=== PATIENT | male | born 1955 | race Caucasian/White ===

== ENCOUNTER 2017-05-02 12:38 | Inpatient (IN) ==
[2017-05-02] MEDS ORDERED: ATROPINE SULFATE PFS IVP PRN (12:58)
[2017-05-02] MEDS ORDERED: NITROSTAT SL PRN (12:58)
[2017-05-02] MEDS ORDERED: MORPHINE 4 MG/ML VIAL IVP PRN (12:58)
[2017-05-02] MEDS ORDERED: TYLENOL PO PRN (12:58)
[2017-05-02] MEDS ORDERED: VISTARIL INJ IM PRN (12:58)
[2017-05-02] MEDS ORDERED: TUSSIONEX PO STA (13:08)
[2017-05-02] MEDS ORDERED: TESSALON PERLES PO STA (13:12)
[2017-05-02] MEDS: DEXTROSE 5%-1/2NS IV SOLUTION 1,000 ML IV SCH (13:39)
[2017-05-02] MEDS: ZITHROMAX PO SCH (13:40)
[2017-05-02] MEDS: SOLU-CORTEF 250 MG IVP SCH ×2 (13:40→21:14)
[2017-05-02] MEDS: ROCEPHIN 1 GM in SODIUM CHLORIDE 50 ML IV SCH (13:40)
[2017-05-02 13:41] VITALS: BMI 23.1
--- NOTE | 2017-05-02 15:12 | DI ---
EXAM: CHEST FRONTAL AND LATERAL VIEWS HISTORY: Cough for 2 weeks. COMPARISON: None FINDINGS: Normal heart size. Patchy areas of nodular density are seen bilaterally, minimal in degre e. Mild hyperinflation. No vascular congestion or pleural fluid. No pneumothorax. IMPRESSION: Patchy nodular densities bilaterally could represent small areas of pneumonia. Follow-up is recommen ded to exclude other pathology including benign or malignant nodules.
[2017-05-02] MEDS: VANCOMYCIN 500 MG in SODIUM CHLORIDE 100 ML IV SCH ×2 (15:34→21:14)
[2017-05-02] MEDS: XOPENEX 1.25 MG NEB SCH ×2 (17:05→23:57)
[2017-05-02] MEDS: DESYREL PO SCH (21:14)
[2017-05-02] MEDS: TESSALON PERLES PO SCH (21:14)
[2017-05-02] MEDS: TUSSIONEX PO SCH (21:14)
[2017-05-03] MEDS: DEXTROSE 5%-1/2NS IV SOLUTION 1,000 ML IV SCH ×3 (00:28→13:31)
[2017-05-03] MEDS: XOPENEX 1.25 MG NEB SCH ×4 (05:19→23:00)
[2017-05-03] MEDS: SOLU-CORTEF 250 MG IVP SCH ×3 (05:48→21:58)
[2017-05-03] MEDS ORDERED: ASPIRIN EC PO SCH (08:00)
[2017-05-03] MEDS ORDERED: NON-FORMULARY MEDICATION (Simvastatin [Simvastatin] 20 MG) PO SCH (09:00)
[2017-05-03] MEDS ORDERED: NON-FORMULARY MEDICATION (Losartan Potassium 50 MG) PO SCH (09:00)
[2017-05-03] MEDS: ROCEPHIN 1 GM in SODIUM CHLORIDE 50 ML IV SCH (09:46)
[2017-05-03] MEDS: ZOCOR PO SCH (09:46)
[2017-05-03] MEDS: ASPIRIN EC PO SCH (09:46)
[2017-05-03] MEDS: ZITHROMAX PO SCH (09:47)
[2017-05-03] MEDS: COZAAR PO SCH (09:47)
[2017-05-03] MEDS: TESSALON PERLES PO SCH ×3 (09:47→21:58)
[2017-05-03] MEDS: TUSSIONEX PO SCH ×2 (09:53→21:58)
--- NOTE | 2017-05-03 10:03 | PCM.PROG ---
Attending Provider: ATTENDING PROVIDER: Dr. DAMARIS VALDEZ This patient is seen with Melani Muro, Nurse Practitioner. DATE OF SERVICE: 05/03/17 SUBJECTIVE: This 61 year old WHITE/ M was hospitalized 05/02/17. Lying in bed, alert, feels slightly better than yesterday. REVIEW OF SYSTEMS: CONSTITUTIONAL: Weakness. No night sweats. No fever or chills. HEENT: Eyes: No visual changes. No eye pain. No eye discharge. ENT: No runny nose. No epistaxis. No sinus pain. No odynophagia. No congestion. RESPIRATORY: Cough and congestion. No hemoptysis. Positive for shortness of breath. CARDIOVASCULAR: No angina symptoms. No CHF symptoms. No atypical chest pain for CAD. No palpitations. No orthopnea.. GASTROINTESTINAL: No abdominal pain. No nausea or vomiting. No diarrhea or constipation. No hematemesis. No hematochezia. GENITOURINARY: No urgency. No frequency. No dysuria. No hematuria. No obstructive symptoms. No discharge. No pain. No significant abnormal bleeding. MUSCULOSKELETAL: No musculoskeletal pain; no joint swelling. NEUROLOGICAL: Awake, alert, oriented to time, place and person. No headache. No neck pain. No syncope. No seizures. No dizziness. PSYCHIATRIC: Not anxious. No depression. No suicidal thoughts. No homicidal thoughts. SKIN: No rash. No lesions. No wounds. ENDOCRINE: No unexplained weight loss. No weight gain. HEMATOLOGIC/LYMPHATIC: No anemia. No purpura. No petechiae. No prolonged or excessive bleeding. No palpable lymph nodes. PHYSICAL EXAMINATION: GENERAL: The patient is awake, alert and oriented, lying in bed in no distress. VITAL SIGNS: Temperature 98.7 F, Pulse 84, Respiratory Rate 16, BP 116/63, Pulse Ox 99% HEENT: Head normocephalic, atraumatic. Eyes: Extraocular muscles are intact. Pupils are equal, round and reactive to light and accommodation. Ears: No lesions. Nose appeared normal. Throat: No exudate or erythema. NECK: Supple. No JVD, no carotid bruit. No lymphadenopathy or thyromegaly. LUNGS: Decreased air entry, wheeze bilaterally. Percussion note normal. Chest symmetrical. HEART: S1, S2, no S3. No murmurs. No cyanosis or clubbing. No ascites. Pulses: Dorsalis pedis and posterior tibial pulses +1 to +2 both sides. ABDOMEN: Soft. Non-tender. Bowel sounds active. No CVA tenderness. No mass felt. EXTREMITIES: No edema. Full range of motion of all extremities, equal. NEUROLOGIC: No focal deficit. Cranial nerves II through XII are grossly intact. No headache, no double vision or headache. SKIN: Not dry. Intact. Turgor-normal. LYMPHATIC: No palpable lymph nodes/no lymphedema. MUSCULOSKELETAL: Normal joints with no swelling. Muscle tone is normal. LAB REVIEW: 05/03/17 03:45 05/03/17 03:45 05/03/17 03:45: Sodium 138, Potassium 4.3, Chloride 105, Carbon Dioxide 25, Anion Gap 12.3, BUN 12, Creatinine 0.97, Estimated GFR (MDRD) 79.00, BUN/ Creatinine Ratio 12.37, Glucose 189 H D, Calcium 9.0, Total Bilirubin 0.5, AST 12 L, ALT 14, Alkaline Phosphatase 50 L, Total Protein 6.8, Albumin 2.7 L, Globulin 4.1, Albumin/Globulin Ratio 0.66 05/03/17 03:45: WBC 6.87, RBC 3.37 L, Hgb 11.1 L, Hct 31.7 L, MCV 94.1 H, MCH 32.9 H, MCHC 35.0, RDW Coeff of Davon 12.2, Plt Count 320, Immature Gran % (Auto) 0.4, Neut % (Auto) 85.9, Lymph % (Auto) 7.3 L, Smith % (Auto) 6.4, Eos % (Auto) 0.0, Baso % (Auto) 0.0, Immature Gran # (Auto) 0.0, Neut # 5.9, Lymph # 0.5 L, Smith # 0.4, Eos # 0.0, Baso # 0.0 05/02/17 21:00: Total Creatine Kinase 52, Troponin I < 0.0100 05/02/17 15:50: Urine Color Yellow, Urine Clarity Clear, Urine pH 5.5, Ur Specific [place] 1.020, Urine Protein Trace, Urine Glucose (UA) Negative, Urine Ketones 3+, Urine Blood Negative, Urine Nitrite Negative, Urine Bilirubin 1+, Urine Urobilinogen 0.2, Ur Leukocyte Esterase Negative, Urine Microscopic WBC 0- 2, Ur Squamous Epith Cells Not present, Urine Mucus 2+ 05/02/17 14:00: Influenza A (Rapid) Negative by naat, Influenza B (Rapid) Negative by naat 05/02/17 13:10: Puncture Site Rrad, O2 Saturation 90.0 L, ABG pH 7.487 H, ABG pCO2 32.6 L, ABG pO2 54.0 L*, ABG HCO3 24.6, ABG Total CO2 26, ABG Base Excess 1 , Ranjit Test +, FiO2 % 21.0 05/02/17 13:08: Total Creatine Kinase 49, Troponin I 0.0150 05/02/17 13:08: Sodium 135 L, Potassium 4.1, Chloride 101, Carbon Dioxide 26, Anion Gap 12.1, BUN 17, Creatinine 1.04, Estimated GFR (MDRD) 73.00, BUN/ Creatinine Ratio 16.34, Glucose 98, Calcium 9.5, Total Bilirubin 0.9, AST 16, ALT 15, Alkaline Phosphatase 56, Total Protein 7.6, Albumin 3.1 L, Globulin 4.5 , Albumin/Globulin Ratio 0.69 05/02/17 13:08: WBC 9.79, RBC 3.99 L, Hgb 12.5 L, Hct 36.3 L, MCV 91.0, MCH 31.3 H, MCHC 34.4, RDW Coeff of Davon 12.0, Plt Count 312, Immature Gran % (Auto) 0.5, Neut % (Auto) 82.0, Lymph % (Auto) 7.6 L, Smith % (Auto) 9.2, Eos % (Auto) 0.4, Baso % (Auto) 0.3, Immature Gran # (Auto) 0.1, Neut # 8.0 H, Lymph # 0.7, Smith # 0.9, Eos # 0.0, Baso # 0.0 ASSESSMENT: 1. BILATERAL PNEUMONIA 2. DEHYDRATION PLAN: 1. Continue IV antibiotics and steroids 2. Decrease IV fluids to 75 mL/hr Plan and coordination of the patient's care discussed in the presence of Client Support Representative and nurse. CONDITION: Stable SCRIBED BY: HERO DUNLAP Ruby On Rails Software Developer scribed while in presence of service performed by Dr. Valdez/Melani Muro APRN on 05/03/17 ([id number])
[2017-05-03] MEDS: VANCOMYCIN 500 MG in SODIUM CHLORIDE 100 ML IV SCH ×2 (10:41→21:26)
[2017-05-03] MEDS ORDERED: DEXTROSE 5%-1/2NS IV SOLUTION 1,000 ML IV SCH (13:21)
[2017-05-03] MEDS: DESYREL PO SCH (21:58)
[2017-05-04] MEDS: DEXTROSE 5%-1/2NS IV SOLUTION 1,000 ML IV SCH (02:39)
[2017-05-04] MEDS: XOPENEX 1.25 MG NEB SCH ×4 (04:30→22:45)
[2017-05-04] MEDS: SOLU-CORTEF 250 MG IVP SCH ×3 (05:56→21:59)
--- NOTE | 2017-05-04 07:04 | HP ---
DATE OF SERVICE: 05/02/17 HISTORY OF PRESENT ILLNESS: This 61-year-old male presented with cough times two weeks with shortness of breath. He took Keflex and Prednisone initially and had 102 temperature. He has a poor appetite. PAST MEDICAL HISTORY: Hypertension Dyslipidemia Erectile dysfunction Insomnia PAST SURGICAL HISTORY: Tooth extraction 1973, 1975 REVIEW OF SYSTEMS: CONSTITUTIONAL: Positive for fever and fatigue. HEENT: Positive for sinus drainage. No sore throat. RESPIRATORY: Cough with yellowish sputum times two weeks. No hemoptysis. CARDIOVASCULAR: Positive for shortness of breath with exertion. No atypical chest pain for coronary artery disease. No angina, CHF symptoms, or palpitations. GASTROINTESTINAL: No melena or abdominal pain. No GERD. GENITOURINARY: No hematuria, no prostatism, no polyuria. SOCIAL RESEARCH ASSISTANT: Positive for dizziness. No blackout, no headache, no double vision. MUSCULOSKELETAL: No osteoarthritis pain, no joint swelling. ENDOCRINE: Weight loss of 12 lb in two weeks. SKIN: Not dry, no rash. PSYCHIATRIC: Not anxious, no depression, no suicidal thoughts, no homicidal thoughts. SOCIAL HISTORY: . Smokes cigars. Alcohol use - socially on weekends, sometimes none. FAMILY HISTORY: Father is with pulmonary problems. Mother - dementia. Brother( s) two older, 58-Parkinson's, 54-healthy. No sisters. MEDICATIONS: Losartan/Cozaar 50 mg p.o. daily Simvastatin 20 mg p.o. daily Trazodone 50 mg p.o. bedtime Aspirin 81 mg p.o. q.a.m. ALLERGIES: NKDA PHYSICAL EXAMINATION: V/S: Pulse 104, BP 110/62, temperature 99.5, 02 sat 89%. Weight 170.6, Height 6' 0". BMI 23.1. GENERAL APPEARANCE: Oriented times three. Pale and clammy. HEENT: Yellow drainage. NECK: No JVP, no bruits. RESPIRATORY: Lungs have decreased breath sounds with rales bilaterally. CARDIOVASCULAR: S1, S2, no S3, no murmurs. No cyanosis, clubbing. No ascites. GI/ABDOMEN: No tenderness. Bowel sounds are active. EXTREMITIES: No edema, pulses +1, equal. SOCIAL RESEARCH ASSISTANT: Deep tendon reflexes, sensory, motor and gait all normal. RECTAL/PROSTATE: 07/01 (0.5) 08/02 (0.6). Colonoscopy 08/30, repeat in 3 years. LABS: 05/02/17 ABGs, FI02 21% on room air. pH 7.487, pc02 32.6, p02 54, base excess of 1. Bicarb 24.6, TC02 26, 02 sat 90. Sodium 135, potassium 4.1, BUN 17, creatinine 1.04, glucose 98. Total protein 7.6, albumin 3.1, globulin 4.5, alkaline phosphatase 56, white count 9.79, hemoglobin 12.5, hematocrit 36.3, platelets 312. ASSESSMENT: 1. ACUTE PNEUMONITIS 2. DEHYDRATION 3. SHORTNESS OF BREATH 4. HYPERTENSION 5. DYSLIPIDEMIA 6. ERECTILE DYSFUNCTION 7. INSOMNIA 8. PLANTAR FASCITIS PLAN: 1. Admit with routine telemetry orders 2. Regular diet 3. CBC, CMP daily 4. Chest x-ray 5. Sputum culture 6. Flu A and B swab 7. D5 1/2 NS @ 125 cc/hr 8. Rocephin 1 gm IV daily 9. Zithromax 500 mg p.o. daily times three days 10. Xopenex 1.25 neb treatment q.6hr MADISON 11. Solu-Cortef 125 mg IV q.8hr one dose now 12. 02 as need 13. Tussionex one teaspoon now and b.i.d. cough 14. Continue home medications 15. ABG on room air 16. Vancomycin 500 mg IV q.12h times 2 days TIME SPENT: More than 70 minutes. MTDD
[2017-05-04] MEDS ORDERED: TUSSIONEX PO SCH (09:00)
[2017-05-04] MEDS: TESSALON PERLES PO SCH ×3 (09:15→21:59)
[2017-05-04] MEDS: COZAAR PO SCH (09:15)
[2017-05-04] MEDS: ASPIRIN EC PO SCH (09:15)
[2017-05-04] MEDS: ZOCOR PO SCH (09:15)
[2017-05-04] MEDS: ZITHROMAX PO SCH (09:16)
[2017-05-04] MEDS: MUCINEX DM ER 600-30 MG TABLET PO SCH ×2 (09:16→21:58)
[2017-05-04] MEDS: ROCEPHIN 1 GM in SODIUM CHLORIDE 50 ML IV SCH (09:20)
--- NOTE | 2017-05-04 10:07 | PCM.PROG ---
Attending Provider: ATTENDING PROVIDER: Dr. DAMARIS VALDEZ DATE OF SERVICE: 05/04/17 SUBJECTIVE: This 61 year old WHITE/ M was hospitalized 05/02/17. The patient is hospitalized with bilateral pneumonia. Condition has steadily improved, is afebrile and appetite improved REVIEW OF SYSTEMS: CONSTITUTIONAL: No night sweats. No fatigue, malaise, lethargy. No fever or chills. HEENT: Eyes: No visual changes. No eye pain. No eye discharge. ENT: No runny nose. No epistaxis. No sinus pain. No odynophagia. No congestion. RESPIRATORY: Less cough; congestion. No hemoptysis. No shortness of breath. CARDIOVASCULAR: No angina symptoms. No CHF symptoms. No atypical chest pain for CAD. No palpitations. No orthopnea.. GASTROINTESTINAL: Appetite improved. No abdominal pain. No nausea or vomiting. No diarrhea or constipation. No hematemesis. No hematochezia. GENITOURINARY: No urgency. No frequency. No dysuria. No hematuria. No obstructive symptoms. No discharge. No pain. No significant abnormal bleeding. MUSCULOSKELETAL: No musculoskeletal pain; no joint swelling. NEUROLOGICAL: Awake, alert, oriented to time, place and person. No headache. No neck pain. No syncope. No seizures. No dizziness. PSYCHIATRIC: Not anxious. No depression. No suicidal thoughts. No homicidal thoughts. SKIN: No rash. No lesions. No wounds. ENDOCRINE: No unexplained weight loss. No weight gain. HEMATOLOGIC/LYMPHATIC: No anemia. No purpura. No petechiae. No prolonged or excessive bleeding. No palpable lymph nodes. PHYSICAL EXAMINATION: GENERAL: The patient is awake, alert and oriented, lying in bed in no distress. VITAL SIGNS: Temperature 98.0 F, Pulse 91, Respiratory Rate 18, BP 130/66, Pulse Ox 94% HEENT: Head normocephalic, atraumatic. Eyes: Extraocular muscles are intact. Pupils are equal, round and reactive to light and accommodation. Ears: No lesions. Nose appeared normal. Throat: No exudate or erythema. NECK: Supple. No JVD, no carotid bruit. No lymphadenopathy or thyromegaly. LUNGS: Decreased breath sounds with mild wheeze. Percussion note normal. Chest symmetrical. HEART: S1, S2, no S3. No murmurs. No cyanosis or clubbing. No ascites. Pulses: Dorsalis pedis and posterior tibial pulses +1 to +2 both sides. ABDOMEN: Soft. Non-tender. Bowel sounds active. No CVA tenderness. No mass felt. EXTREMITIES: No edema. Full range of motion of all extremities, equal. NEUROLOGIC: No focal deficit. Cranial nerves II through XII are grossly intact. No headache, no double vision or headache. SKIN: Not dry. Intact. Turgor-normal. LYMPHATIC: No palpable lymph nodes/no lymphedema. MUSCULOSKELETAL: Normal joints with no swelling. Muscle tone is normal. LAB REVIEW: 05/04/17 04:30 05/04/17 04:30 05/04/17 04:30: Sodium 139, Potassium 3.9, Chloride 106, Carbon Dioxide 23, Anion Gap 13.9, BUN 11, Creatinine 0.89, Estimated GFR (MDRD) 87.00, BUN/ Creatinine Ratio 12.35, Glucose 159 H, Calcium 8.9, Total Bilirubin 0.4, AST 13 L, ALT 18, Alkaline Phosphatase 51 L, Total Protein 6.2 L, Albumin 2.7 L, Globulin 3.5, Albumin/Globulin Ratio 0.77 05/04/17 04:30: WBC 10.44 H, RBC 3.54 L, Hgb 10.8 L, Hct 32.5 L, MCV 91.8, MCH 30.5, MCHC 33.2, RDW Coeff of Davon 12.1, Plt Count 290 05/03/17 13:50: Puncture Site R rad, O2 Saturation 91.0 L, ABG pH 7.476 H, ABG pCO2 33.8 L, ABG pO2 57.0 L*, ABG HCO3 24.9, ABG Total CO2 26, ABG Base Excess 1 , Ranjit Test +, FiO2 % 21.0 ASSESSMENT: 1. BILATERAL PNEUMONIA SEEMS TO BE IMPROVING SLOWLY; NEGATIVE PE. PLAN: 1. Continue antibiotics and steroids 2. Xanax 0.25 at 9 or 10 p.m. to help with sleep; do not wake patient for vital signs. 3. D/C EKG 4. Chest x-ray, PA and Lateral 5. D/C telemetry 6. Change Tussionex to t.i.d. 7. ABG tomorrow morning on room air at 8 a.m. Plan and coordination of the patient's care discussed in the presence of Electrical Design Technician and nurse. CONDITION: Stable SCRIBED BY: HERO DUNLAP Ager Operator scribed while in presence of service performed by Dr. DAMARIS VALDEZ on 05/04/17 ([id number])
--- NOTE | 2017-05-04 10:17 | DI ---
EXAM: Chest two views HISTORY: Cough, shortness of breath COMPARISON: 05/02/2017 TECHNIQUE: Two views of the chest were performed FINDINGS: Small patchy/nodular opacity right mid lung, less conspicuous. There is no pleural effusi on or pneumothorax. The heart is normal in size. The mediastinal contour is normal. There are no a cute abnormalities of the bones. IMPRESSION: Small patchy/nodular opacity right mid lung, less conspicuous. Recommend continued foll ow-up.
[2017-05-04] MEDS ORDERED: PHENERGAN WITH CODEINE 6.25/10 MG/5 ML PO SCH (14:08)
[2017-05-04] MEDS: PHENERGAN WITH CODEINE 6.25/10 MG/5 ML PO SCH ×2 (15:50→21:58)
[2017-05-04] MEDS: DESYREL PO SCH (21:59)
[2017-05-04] MEDS: XANAX PO SCH (21:59)
[2017-05-05] MEDS: PHENERGAN WITH CODEINE 6.25/10 MG/5 ML PO SCH ×6 (03:34→20:31)
[2017-05-05] MEDS: SOLU-CORTEF 250 MG IVP SCH ×3 (04:41→20:31)
[2017-05-05] MEDS: XOPENEX 1.25 MG NEB SCH ×4 (05:20→21:30)
--- NOTE | 2017-05-05 08:43 | PN ---
DATE OF SERVICE: 05/03/17 SUBJECTIVE: The patient was hospitalized with double pneumonia. Seems to be feeling a little better. His hydration status has improved. His oxygen saturation has improved. Appetite has improved. He still feels weak. No fever. PHYSICAL EXAMINATION: HEENT: Head normocephalic, atraumatic. Eyes: Extraocular muscles are intact. Pupils are equal, round and reactive to light and accommodation. Ears: No lesions. Nose appeared normal. Throat: No exudate or erythema. NECK: Supple. No JVD, no carotid bruit. No lymphadenopathy or thyromegaly. LUNGS: Still has wheeze but decreased breath sounds with mild wheeze but good air entry. Better than yesterday. Clear to auscultation. Percussion note normal. Chest symmetrical. HEART: S1, S2, no S3. No murmurs. No cyanosis or clubbing. No ascites. Pulses: Dorsalis pedis and posterior tibial pulses +1 to +2 both sides. ABDOMEN: Soft. Nontender. Bowel sounds active. No CVA tenderness. No mass felt. EXTREMITIES: No edema. Full range of motion of all extremities, equal. NEUROLOGIC: No focal deficit. Cranial nerves II through XII are grossly intact. No headache, no double vision or headache. SKIN: Not dry. Intact. Turgor - normal. LYMPHATIC: No palpable lymph nodes/no lymphedema. MUSCULOSKELETAL: Normal joints with no swelling. Muscle tone is normal. PLAN: 1. Continue steroids, antibiotics and NEBS treatment CONDITION: Stable, clinically improving. TIME SPENT: More than 30 minutes. Plan and coordination of the patient's care discussed in the presence of nurse. ROQUE
--- NOTE | 2017-05-05 09:35 | PCM.PROG ---
Attending Provider: ATTENDING PROVIDER: Dr. DAMARIS VALDEZ This patient is seen with Melani Muro, Nurse Practitioner. DATE OF SERVICE: 05/05/17 SUBJECTIVE: This 61 year old WHITE/ M was hospitalized 05/02/17. The patient is lying in bed, alert. He is still slightly congested and weak. He slept some better last night. REVIEW OF SYSTEMS: CONSTITUTIONAL: Weakness. No night sweats. No fever or chills. HEENT: Eyes: No visual changes. No eye pain. No eye discharge. ENT: No runny nose. No epistaxis. No sinus pain. No odynophagia. No congestion. RESPIRATORY: Cough and congestion. No hemoptysis. No shortness of breath. CARDIOVASCULAR: No angina symptoms. No CHF symptoms. No atypical chest pain for CAD. No palpitations. No orthopnea.. GASTROINTESTINAL: No abdominal pain. No nausea or vomiting. No diarrhea or constipation. No hematemesis. No hematochezia. GENITOURINARY: No urgency. No frequency. No dysuria. No hematuria. No obstructive symptoms. No discharge. No pain. No significant abnormal bleeding. MUSCULOSKELETAL: No musculoskeletal pain; no joint swelling. NEUROLOGICAL: Awake, alert, oriented to time, place and person. No headache. No neck pain. No syncope. No seizures. No dizziness. PSYCHIATRIC: Not anxious. No depression. No suicidal thoughts. No homicidal thoughts. SKIN: No rash. No lesions. No wounds. ENDOCRINE: No unexplained weight loss. No weight gain. HEMATOLOGIC/LYMPHATIC: No anemia. No purpura. No petechiae. No prolonged or excessive bleeding. No palpable lymph nodes. PHYSICAL EXAMINATION: GENERAL: The patient is awake, alert and oriented, lying in bed in no distress. VITAL SIGNS: Temperature 97.8 F, Pulse 78, Respiratory Rate 20, BP 144/79, Pulse Ox 96% HEENT: Head normocephalic, atraumatic. Eyes: Extraocular muscles are intact. Pupils are equal, round and reactive to light and accommodation. Ears: No lesions. Nose appeared normal. Throat: No exudate or erythema. NECK: Supple. No JVD, no carotid bruit. No lymphadenopathy or thyromegaly. LUNGS: Diminished breath sounds bilaterally. Clear to auscultation. Percussion note normal. Chest symmetrical. HEART: S1, S2, no S3. No murmurs. No cyanosis or clubbing. No ascites. Pulses: Dorsalis pedis and posterior tibial pulses +1 to +2 both sides. ABDOMEN: Soft. Non-tender. Bowel sounds active. No CVA tenderness. No mass felt. EXTREMITIES: No edema. Full range of motion of all extremities, equal. NEUROLOGIC: No focal deficit. Cranial nerves II through XII are grossly intact. No headache, no double vision or headache. SKIN: Not dry. Intact. Turgor-normal. LYMPHATIC: No palpable lymph nodes/no lymphedema. MUSCULOSKELETAL: Normal joints with no swelling. Muscle tone is normal. LAB REVIEW: 05/04/17 04:30 05/04/17 04:30 ASSESSMENT: 1. BILATERAL PNEUMONIA SEEMS TO BE IMPROVING SLOWLY; NEGATIVE PE. 2. WEAKNESS IMPROVING PLAN: Continue IV antibiotics and steroids Plan and coordination of the patient's care discussed in the presence of Automotive Service Professional and nurse. CONDITION: Stable SCRIBED BY: HERO DUNLAP Tube Rebuilder scribed while in presence of service performed by Dr. Valdez/Melani Muro APRN on 05/05/17 ([id number])
[2017-05-05] MEDS: ROCEPHIN 1 GM in SODIUM CHLORIDE 50 ML IV SCH (09:39)
[2017-05-05] MEDS: MUCINEX DM ER 600-30 MG TABLET PO SCH ×2 (09:39→20:32)
[2017-05-05] MEDS: ZOCOR PO SCH (09:40)
[2017-05-05] MEDS: ASPIRIN EC PO SCH (09:40)
[2017-05-05] MEDS: COZAAR PO SCH (09:40)
[2017-05-05] MEDS: TESSALON PERLES PO SCH ×3 (09:41→20:31)
[2017-05-05] MEDS: PULMICORT 0.5 MG/2 ML NEB SCH ×2 (12:19→18:50)
--- NOTE | 2017-05-05 15:34 | CT ---
EXAM: CT chest with contrast HISTORY: Shortness of breath, coughing, congestion COMPARISON: None TECHNIQUE: CT chest performed with intravenous contrast. Coronal and sagittal reformatted images ob tained FINDINGS: Thoracic inlet unremarkable. Heart normal in size. No pericardial effusion. Aorta kortney l in caliber. Esophagus unremarkable. Patient status post cholecystectomy. Granulomatous calcifica tion sub centimeter hypodensity in the liver, too small to characterize. No acute abnormalities of t he bones. Degenerate change in the spine. Central airway patent. Bilateral lower airway thickening with scattered centrilobular nodularity, greatest in the right lower lobe, suggesting small airways inflammation/infection. Multifocal bilateral patchy and nodular ground-glass infiltrates with small a reas of consolidation, greatest in the right lower lobe. No pleural effusion or pneumothorax. IMPRESSION: Findings of small airways inflammation/infection. Additionally, there are multifocal bi lateral patchy and nodular ground-glass infiltrates with small areas of consolidation, greatest in th e right lower lobe. Findings suggest pneumonia. CT chest follow-up is recommended 6 - 8 weeks given the areas of nodularity.
[2017-05-05] MEDS ORDERED: VANCOMYCIN 500 MG in SODIUM CHLORIDE 100 ML IV STA (16:19)
[2017-05-05] MEDS: VANCOMYCIN 1.25 GM in SODIUM CHLORIDE 250 ML IV SCH (18:51)
[2017-05-05] MEDS: XANAX PO SCH (20:31)
[2017-05-05] MEDS: DESYREL PO SCH (20:32)
[2017-05-05] MEDS ORDERED: VANCOMYCIN 500 MG in SODIUM CHLORIDE 100 ML IV SCH ×2 (21:00→22:00)
[2017-05-06] MEDS: PHENERGAN WITH CODEINE 6.25/10 MG/5 ML PO SCH ×6 (02:23→20:29)
[2017-05-06] MEDS: SOLU-CORTEF 250 MG IVP SCH ×3 (04:51→20:30)
[2017-05-06] MEDS: XOPENEX 1.25 MG NEB SCH ×4 (05:11→23:30)
[2017-05-06] MEDS: PULMICORT 0.5 MG/2 ML NEB SCH ×2 (05:11→17:55)
[2017-05-06] MEDS: ASPIRIN EC PO SCH (08:30)
[2017-05-06] MEDS: MUCINEX DM ER 600-30 MG TABLET PO SCH ×2 (08:30→20:36)
[2017-05-06] MEDS: ZOCOR PO SCH (08:30)
[2017-05-06] MEDS: TESSALON PERLES PO SCH ×3 (08:30→20:29)
[2017-05-06] MEDS: COZAAR PO SCH (08:31)
[2017-05-06] MEDS: ROCEPHIN 1 GM in SODIUM CHLORIDE 50 ML IV SCH (08:31)
[2017-05-06] MEDS ORDERED: K-DUR PO STA (10:50)
[2017-05-06] MEDS: VANCOMYCIN 1.25 GM in SODIUM CHLORIDE 250 ML IV SCH ×2 (11:12→20:28)
--- NOTE | 2017-05-06 15:22 | PN ---
DATE OF SERVICE: 05/05/17 SUBJECTIVE: The patient was hospitalized with double pneumonia. The patient's condition has slowly improving. His pO2 55 now with oxygen saturation 90%. The CT scan showed base line consolidation more on the right then the left. He is feeling better and the appetite has improved but the cough still persists. Cardiovascular status is stable. The patient will also be given Vancomycin along with Rocephin. CONDITION: Stable, improving very slowly. TIME SPENT: More than 30 minutes. Plan and coordination of the patient's care discussed in the presence of nurse. ROQUE
[2017-05-06] MEDS: DESYREL PO SCH (20:29)
[2017-05-06] MEDS: XANAX PO SCH (20:29)
[2017-05-06] MEDS: MUCOMYST 20% NEB NEB SCH (23:30)
[2017-05-07] MEDS: PHENERGAN WITH CODEINE 6.25/10 MG/5 ML PO SCH ×6 (02:13→21:07)
[2017-05-07] MEDS: SOLU-CORTEF 250 MG IVP SCH ×2 (05:04→12:37)
[2017-05-07] MEDS: PULMICORT 0.5 MG/2 ML NEB SCH ×2 (05:28→17:29)
[2017-05-07] MEDS: XOPENEX 1.25 MG NEB SCH ×4 (05:28→23:14)
[2017-05-07] MEDS: ASPIRIN EC PO SCH (09:46)
[2017-05-07] MEDS: COZAAR PO SCH (09:47)
[2017-05-07] MEDS: MUCINEX DM ER 600-30 MG TABLET PO SCH ×2 (09:47→21:06)
[2017-05-07] MEDS: ROCEPHIN 1 GM in SODIUM CHLORIDE 50 ML IV SCH (09:48)
[2017-05-07] MEDS: ZOCOR PO SCH (09:48)
[2017-05-07] MEDS: TESSALON PERLES PO SCH ×3 (09:49→21:06)
[2017-05-07] MEDS: VANCOMYCIN 1.25 GM in SODIUM CHLORIDE 250 ML IV SCH ×2 (10:57→21:13)
[2017-05-07] MEDS: MUCOMYST 20% NEB NEB SCH ×2 (11:16→23:14)
[2017-05-07] MEDS ORDERED: PREDNISONE PO STA (13:54)
[2017-05-07] MEDS ORDERED: LASIX IVP STA (13:54)
[2017-05-07] MEDS: DESYREL PO SCH (21:06)
[2017-05-07] MEDS: XANAX PO SCH (21:06)
[2017-05-08] MEDS: PHENERGAN WITH CODEINE 6.25/10 MG/5 ML PO SCH ×6 (01:37→20:43)
[2017-05-08] MEDS: XOPENEX 1.25 MG NEB SCH ×4 (05:11→23:15)
[2017-05-08] MEDS: PULMICORT 0.5 MG/2 ML NEB SCH ×2 (05:12→16:42)
[2017-05-08] MEDS: MUCINEX DM ER 600-30 MG TABLET PO SCH ×2 (08:38→20:43)
[2017-05-08] MEDS: ROCEPHIN 1 GM in SODIUM CHLORIDE 50 ML IV SCH (08:38)
[2017-05-08] MEDS: TESSALON PERLES PO SCH ×3 (08:39→20:43)
[2017-05-08] MEDS: ZOCOR PO SCH (08:39)
[2017-05-08] MEDS: COZAAR PO SCH (08:39)
[2017-05-08] MEDS: PREDNISONE PO SCH (08:39)
[2017-05-08] MEDS: ASPIRIN EC PO SCH (08:39)
[2017-05-08] MEDS: VANCOMYCIN 1.25 GM in SODIUM CHLORIDE 250 ML IV SCH (09:45)
[2017-05-08] MEDS: MUCOMYST 20% NEB NEB SCH ×2 (11:00→23:18)
[2017-05-08] MEDS: VANCOMYCIN 1 GM in SODIUM CHLORIDE 250 ML IV SCH (20:43)
[2017-05-08] MEDS: DESYREL PO SCH (20:43)
[2017-05-08] MEDS: XANAX PO SCH (20:43)
[2017-05-09] MEDS: PHENERGAN WITH CODEINE 6.25/10 MG/5 ML PO SCH ×4 (02:47→12:14)
[2017-05-09] MEDS: XOPENEX 1.25 MG NEB SCH ×2 (05:09→11:17)
[2017-05-09] MEDS: PULMICORT 0.5 MG/2 ML NEB SCH (05:11)
[2017-05-09] MEDS: VANCOMYCIN 1 GM in SODIUM CHLORIDE 250 ML IV SCH (08:00)
[2017-05-09] MEDS: COZAAR PO SCH (08:00)
[2017-05-09] MEDS: ASPIRIN EC PO SCH (08:00)
[2017-05-09] MEDS: PREDNISONE PO SCH (08:01)
[2017-05-09] MEDS: TESSALON PERLES PO SCH (08:01)
[2017-05-09] MEDS: MUCINEX DM ER 600-30 MG TABLET PO SCH (08:01)
[2017-05-09] MEDS: ZOCOR PO SCH (08:01)
[2017-05-09] MEDS ORDERED: COZAAR PO SCH (09:22)
--- NOTE | 2017-05-09 09:23 | DI ---
EXAM: PA and lateral views of the chest HISTORY: Persisting cough COMPARISON: Chest x-ray 05/04/[address] chest 05/05/2017 FINDINGS: The cardiomediastinal silhouette is normal. There is no pneumothorax or pleural effusion. There is minimal airway thickening noted in the right lower lobe. This is similar in appearance to prior chest x-ray. There is no consolidation, nodule or mass. The osseous structures are stable. IMPRESSION: Stable airway thickening and ground-glass most pronounced in the right lower lobe consis tent with findings on recent CT of small airways infection/inflammation.
[2017-05-09] MEDS ORDERED: COZAAR PO STA (09:25)
[2017-05-09] MEDS: K-DUR PO SCH ×2 (09:50→12:13)
[2017-05-09] MEDS: ROCEPHIN 1 GM in SODIUM CHLORIDE 50 ML IV SCH (09:50)
[2017-05-09 11:03] VITALS: BP 154/84; TEMP 97.7
--- NOTE | 2017-05-09 11:26 | PCM.PROG ---
Attending Provider: ATTENDING PROVIDER: Dr. DAMARIS VALDEZ This patient is seen with Melani Muro, Nurse Practitioner. DATE OF SERVICE: 05/09/17 SUBJECTIVE: This 61 year old WHITE/ M was hospitalized 05/08/17. The patient is resting comfortably. He is still short of breath, coughing and is very weak. He is unable to get up and about, and walk around the room without extreme fatigue and shortness of breath. REVIEW OF SYSTEMS: CONSTITUTIONAL: Weakness. No night sweats. No malaise, lethargy. No fever or chills. HEENT: Eyes: No visual changes. No eye pain. No eye discharge. ENT: No runny nose. No epistaxis. No sinus pain. No odynophagia. No congestion. RESPIRATORY: Cough and congestion. No hemoptysis. No shortness of breath. CARDIOVASCULAR: No angina symptoms. No CHF symptoms. No atypical chest pain for CAD. No palpitations. No orthopnea.. GASTROINTESTINAL: No abdominal pain. No nausea or vomiting. No diarrhea or constipation. No hematemesis. No hematochezia. GENITOURINARY: No urgency. No frequency. No dysuria. No hematuria. No obstructive symptoms. No discharge. No pain. No significant abnormal bleeding. MUSCULOSKELETAL: No musculoskeletal pain; no joint swelling. NEUROLOGICAL: Awake, alert, oriented to time, place and person. No headache. No neck pain. No syncope. No seizures. No dizziness. PSYCHIATRIC: Not anxious. No depression. No suicidal thoughts. No homicidal thoughts. SKIN: No rash. No lesions. No wounds. ENDOCRINE: No unexplained weight loss. No weight gain. HEMATOLOGIC/LYMPHATIC: No anemia. No purpura. No petechiae. No prolonged or excessive bleeding. No palpable lymph nodes. PHYSICAL EXAMINATION: GENERAL: The patient is awake, alert and oriented, lying in bed in no distress. VITAL SIGNS: Temperature 98.0 F, Pulse 68, Respiratory Rate 20, BP 145/78, Pulse Ox 96% HEENT: Head normocephalic, atraumatic. Eyes: Extraocular muscles are intact. Pupils are equal, round and reactive to light and accommodation. Ears: No lesions. Nose appeared normal. Throat: No exudate or erythema. NECK: Supple. No JVD, no carotid bruit. No lymphadenopathy or thyromegaly. LUNGS: Diminished breath sounds bilaterally. Clear to auscultation. Percussion note normal. Chest symmetrical. HEART: S1, S2, no S3. No murmurs. No cyanosis or clubbing. No ascites. Pulses: Dorsalis pedis and posterior tibial pulses +1 to +2 both sides. ABDOMEN: Soft. Non-tender. Bowel sounds active. No CVA tenderness. No mass felt. EXTREMITIES: No edema. Full range of motion of all extremities, equal. NEUROLOGIC: No focal deficit. Cranial nerves II through XII are grossly intact. No headache, no double vision or headache. SKIN: Not dry. Intact. Turgor-normal. LYMPHATIC: No palpable lymph nodes/no lymphedema. MUSCULOSKELETAL: Normal joints with no swelling. Muscle tone is normal. LAB REVIEW: 05/09/17 04:00 05/09/17 04:00 05/09/17 04:00: Sodium 143, Potassium 3.0 L, Chloride 107, Carbon Dioxide 29, Anion Gap 10.0, BUN 17, Creatinine 0.80, Estimated GFR (MDRD) 99.00, BUN/ Creatinine Ratio 21.25, Glucose 77, Calcium 8.0 L, Total Bilirubin 0.4, AST 21, ALT 65, Alkaline Phosphatase 47 L, Total Protein 5.1 L, Albumin 2.3 L, Globulin 2.8, Albumin/Globulin Ratio 0.82 05/09/17 04:00: WBC 7.34, RBC 3.33 L, Hgb 10.3 L, Hct 30.1 L, MCV 90.4, MCH 30.9 , MCHC 34.2, RDW Coeff of Davon 12.6, Plt Count 178 D, Immature Gran % (Auto) 1.2 , Neut % (Auto) 68.2, Lymph % (Auto) 19.8, Gilmer % (Auto) 9.0, Eos % (Auto) 1.8, Baso % (Auto) 0.0, Immature Gran # (Auto) 0.1, Neut # 5.0, Lymph # 1.5, Gilmer # 0.7, Eos # 0.1, Baso # 0.0 05/09/17 04:00: Reticulocyte % (Auto) 2.78, Absolute Retic 0.0923, Retic Hgb Equivalent 37.0 05/09/17 04:00: Vitamin B12 456 05/08/17 08:53: Iron 74, TIBC 185 L, % Saturation 40, Unsat Iron Binding 111, Ferritin 273.42, Folate 4.4 05/08/17 08:53: Vancomycin Trough 19.05 05/08/17 08:00: Puncture Site R rad, O2 Saturation 96.0, ABG pH 7.50 H, ABG pCO2 37.0, ABG pO2 71.0 L, ABG HCO3 29 H, ABG Total CO2 30 H, ABG Base Excess 6 H, Ranjit Test +, FiO2 % 21.0 ASSESSMENT: 1. BILATERAL PNEUMONIA SEEMS TO BE IMPROVING SLOWLY; NEGATIVE PE. 2. WEAKNESS IMPROVING 3. HYPOKALEMIA PLAN: 1. Potassium 40 mEq p.o. t.i.d. 2. Repeat flu A & B 3. M. pneumoniae test 4. Repeat chest x-ray Plan and coordination of the patient's care discussed in the presence of Lunch Cook and nurse. CONDITION: Stable SCRIBED BY: [employer] Field Sales Associate scribed while in presence of service performed by Dr. Valdez/Melani Muro APRN on 05/09/17 ([id number])
--- NOTE | 2017-05-09 12:42 | CM.DICTOOL ---
ADMISSION: 05/02/17 12:39 DISCHARGE: 05/09/17 DATE OF SERVICE: 05/09/17 FINAL DIAGNOSIS PNEUMONIA, BILATERAL DEHYDRATION HYPOKALEMIA (TREATED) HYPERTENSION DYSLIPIDEMIA ANXIETY OCCASIONAL TOBACCO USE (CIGARS) OCCASIONAL ETOH LAST VITALS Temp Pulse Resp BP Pulse Ox 97.7 F 84 20 154/84 H 96 05/09/17 10:00 05/09/17 10:00 05/09/17 10:00 05/09/17 10:00 05/09/17 10:00 ACTIVE HOME MEDICATIONS Aspirin (Aspirin Ec) 81 mg PO [facility] Last Admin: 05/09/17 08:00 Dose: 81 mg Losartan Potassium (Cozaar) 100 mg PO DAILY [facility] (INCREASED FROM 50 MG DAILY) Simvastatin (Zocor) 20 mg PO DAILY [facility] Last Admin: 05/09/17 08:01 Dose: 20 mg Trazodone HCl (Desyrel) 50 mg PO BEDTIME [facility] Last Admin: 05/08/17 20:43 Dose: 50 mg ALLERGIES No Known Allergies Allergy (Unverified 02/28/15 15:54) NEW PRESCRIPTIONS: SYMBICORT 80/4.5 MCG, TAKE ONE PUFF TWICE DAILY (OFFICE SAMPLE PROVIDED) LOSARTAN POTASSIUM (COZAAR) 100 MG, TAKE ONE TAB BY MOUTH DAILY K-DUR 20 MEQ, TAKE ONE TABLET BY MOUTH TWICE DAILY FOR 3 DAYS ONLY TUSSIONEX 5 ML, TAKE 5 ML BY MOUTH TWICE DAILY IF NEEDED (PRN) FOR COUGHING KEFLEX 500 MG, TAKE ONE CAPSULE BY MOUTH THREE TIMES DAILY FOR 7 DAYS PROAIR INHALER, ADMINISTER TWO PUFFS THREE TIMES DAILY UNTIL YOU ARE NO LONGER COUGHING PREDNISONE 10 MG, TAKE TWO TABS (20 MG) BY MOUTH TWICE DAILY WITH FOOD FOR 5 DAYS, THEN TAKE ONE TAB (10 MG) BY MOUTH WITH FOOD FOR 5 DAYS, THEN STOP SMOKING: THE PATIENT OCCASIONALLY SMOKES CIGARS. HE HAS BEEN MADE AWARE OF THE DETRIMENTAL EFFECTS ANY TOBACCO USE HAS ON HIS CARDIOPULMONARY/VASCULAR HEALTH. HE HAS BEEN ENCOURAGED TO STOP SMOKING COMPLETELY. HE HAS NO VERBALIZED HIS INTENT FOR COMPLETE CESSATION. HE WILL BENEFIT FROM OUTPATIENT REINFORCEMENT/ ENCOURAGEMENT FOR COMPLETE CESSATION. DISEASE SPECIFIC EDUCATION: COMMUNITY ACQUIRED PNEUMONIA AND PREVENTION OF SPREAD BRONCHITIS DEHYDRATION HYPOKALEMIA FOLLOW UP HOME MEDICATIONS NEW PRESCRIPTIONS LAB REVIEW: 05/09/17 04:00 05/09/17 04:00 05/09/17 04:00: Sodium 143, Potassium 3.0 L, Chloride 107, Carbon Dioxide 29, Anion Gap 10.0, BUN 17, Creatinine 0.80, Estimated GFR (MDRD) 99.00, BUN/ Creatinine Ratio 21.25, Glucose 77, Calcium 8.0 L, Total Bilirubin 0.4, AST 21, ALT 65, Alkaline Phosphatase 47 L, Total Protein 5.1 L, Albumin 2.3 L, Globulin 2.8, Albumin/Globulin Ratio 0.82 05/09/17 04:00: WBC 7.34, RBC 3.33 L, Hgb 10.3 L, Hct 30.1 L, MCV 90.4, MCH 30.9 , MCHC 34.2, RDW Coeff of Davon 12.6, Plt Count 178 D, Immature Gran % (Auto) 1.2 , Neut % (Auto) 68.2, Lymph % (Auto) 19.8, Lasalle % (Auto) 9.0, Eos % (Auto) 1.8, Baso % (Auto) 0.0, Immature Gran # (Auto) 0.1, Neut # 5.0, Lymph # 1.5, Lasalle # 0.7, Eos # 0.1, Baso # 0.0 05/09/17 04:00: Reticulocyte % (Auto) 2.78, Absolute Retic 0.0923, Retic Hgb Equivalent 37.0 05/09/17 04:00: Vitamin B12 456 05/08/17 08:53: Iron 74, TIBC 185 L, % Saturation 40, Unsat Iron Binding 111, Ferritin 273.42, Folate 4.4 PLAN: DISCHARGE HOME TODAY RETURN TO SEE DR. VALDEZ IN HIS OFFICE ON 05/16/17 AT 9:45 A.M. RESUME YOUR HOME MEDICATIONS PER LIST PROVIDED BY THE NURSING STAFF PLEASE NOTE THE INCREASE IN YOUR LOSARTAN POTASSIUM (COZAAR) TO 100 MG DAILY NEW PRESCRIPTIONS SYMBICORT 80/4.5 MCG, TAKE ONE PUFF TWICE DAILY (OFFICE SAMPLE PROVIDED) LOSARTAN POTASSIUM (COZAAR) 100 MG, TAKE ONE TAB BY MOUTH DAILY K-DUR 20 MEQ, TAKE ONE TABLET BY MOUTH TWICE DAILY FOR 3 DAYS ONLY TUSSIONEX 5 ML, TAKE 5 ML BY MOUTH TWICE DAILY IF NEEDED (PRN) FOR COUGHING KEFLEX 500 MG, TAKE ONE CAPSULE BY MOUTH THREE TIMES DAILY FOR 7 DAYS PROAIR INHALER, ADMINISTER TWO PUFFS THREE TIMES DAILY UNTIL YOU ARE NO LONGER COUGHING PREDNISONE 10 MG, TAKE TWO TABS (20 MG) BY MOUTH TWICE DAILY WITH FOOD FOR 5 DAYS, THEN TAKE ONE TAB (10 MG) BY MOUTH WITH FOOD FOR 5 DAYS, THEN STOP ACTIVITY GET PLENTY OF REST AT HOME. GRADUALLY INCREASE YOUR ACTIVITY LEVEL ACCORDING TO YOUR TOLERATION DIET HEALTHY HEART SUMMARY THE PATIENT IS ALERT AND ORIENTED X3. HE CURRENTLY RESIDES AT HOME WITH HIS SPOUSE. HE IS INDEPENDENT WITH ADL'S AND DOES NOT REQUIRE HOME HEALTH OR HOMEMAKING SERVICES. HE HAS NO DME AND WILL NOT REQUIRE ANY FOR DISCHARGE. MR. RAE DESIRES TO RETURN TO HIS HOME AT DISCHARGE TODAY. THE SKIN TURGOR IS INTACT AND WITHOUT DECUBITUS ULCERS. HYDRATION AND NUTRITIONAL STATUS ARE GOOD. THE PATIENT HAS SHOWN GOOD CLINICAL PROGRESS WITH THE COURSE OF TREATMENT DURING THIS HOSPITALIZATION. HIS IMPROVEMENT HAS BEEN SLOW BUT POSITIVE. HE HAS NO FEVER. AIR ENTRY INTO HIS LUNGS HAS IMPROVED A GREAT DEAL. HE IS AWARE AND AGREEABLE FOR DISCHARGE TODAY. CURRENT CODE STATUS FULL CODE BILL RICHARDSON APRN DAMARIS VALDEZ M.D.
--- NOTE | 2017-05-09 15:01 | PN ---
DATE OF SERVICE: 05/07/17 SUBJECTIVE: 61 year old white male hospitalized with bilateral pneumonia. The patient says that he is feeling better and getting stronger. He was up and about and felt better with walking. REVIEW OF SYSTEMS: CONSTITUTIONAL: No night sweats. No fatigue, malaise, lethargy. No fever or chills. Weakness. HEENT: Eyes: No visual changes. No eye pain. No eye discharge. ENT: No runny nose. No epistaxis. No sinus pain. No sore throat. No odynophagia. No congestion. RESPIRATORY: Mild cough that is improving, no congestion. No hemoptysis. No shortness of breath. CARDIOVASCULAR: No angina symptoms. No CHF symptoms. No atypical chest pain for CAD. No palpitations. No orthopnea. GASTROINTESTINAL: No abdominal pain. No nausea or vomiting. No diarrhea or constipation. No hematemesis. No hematochezia. GENITOURINARY: No urgency. No frequency. No dysuria. No hematuria. No obstructive symptoms. No discharge. No pain. No significant abnormal bleeding. MUSCULOSKELETAL: No musculoskeletal pain; no joint swelling. NEUROLOGICAL: No headache. No neck pain. No syncope. No seizures. No dizziness. PSYCHIATRIC: Not anxious. No depression. No suicidal thoughts. No homicidal thoughts. SKIN: No rash. No lesions. No wounds. ENDOCRINE: No unexplained weight loss. No weight gain. HEMATOLOGIC/LYMPHATIC: No anemia. No purpura. No petechiae. No prolonged or excessive bleeding. No palpable lymph nodes. PHYSICAL EXAMINATION: GENERAL: The patient is oriented to time, place and person. VITAL SIGNS: Temperature 97.3, pulse 60, respiratory rate 18, blood pressure 160/80 and pulse ox 97% on room air. HEENT: Head normocephalic, atraumatic. Eyes: Extraocular muscles are intact. Pupils are equal, round and reactive to light and accommodation. Ears: No lesions. Nose appeared normal. Throat: No exudate or erythema. NECK: Supple. No JVD, no carotid bruit. No lymphadenopathy or thyromegaly. LUNGS: Crepitations few right at the bases changes with the cough. Clear to auscultation. Percussion note normal. Chest symmetrical. HEART: S1, S2, no S3. No murmurs. No cyanosis or clubbing. No ascites. Pulses: Dorsalis pedis and posterior tibial pulses +1 to +2 both sides. ABDOMEN: Soft. Nontender. Bowel sounds active. No CVA tenderness. No mass felt. EXTREMITIES: Trace edema from steroid therapy. Full range of motion of all extremities, equal. NEUROLOGIC: No focal deficit. Cranial nerves II through XII are grossly intact. No headache, no double vision or headache. SKIN: Not dry. Intact. Turgor - normal. LYMPHATIC: No palpable lymph nodes/no lymphedema. MUSCULOSKELETAL: Normal joints with no swelling. Muscle tone is normal. ASSESSMENT: 1. Pneumonia seems to be resolving. PLAN: 1. Give IV Lasix to get rid of extra fluid from steroid 2. Discontinue IV Steroids 3. Prednisone 20mg Po daily 4. Will be BNP 5. Will also do echocardiogram 6. The patient has anemia which we will monitor, could be nutritional 7. Continue Rocephin Vancomycin 8. Will order Mycoplasma, Influenza and Campylobacter titers. CONDITION: Stable, improving TIME SPENT: More than 30 minutes. Plan and coordination of the patient's care discussed in the presence of nurse. ROQUE
--- NOTE | 2017-05-09 15:06 | PN ---
DATE OF SERVICE: 05/08/17 SUBJECTIVE: The patient was seen today and the patient is feeling a lot better. His pO2 is more than 70 which is quite surprising but very pleasant surprise. He is feeling better. REVIEW OF SYSTEMS: CONSTITUTIONAL: No night sweats. No fatigue, malaise, lethargy. No fever or chills. HEENT: Eyes: No visual changes. No eye pain. No eye discharge. ENT: No runny nose. No epistaxis. No sinus pain. No sore throat. No odynophagia. No congestion. RESPIRATORY: No cough, no congestion. No hemoptysis. Shortness of breath on exertion. CARDIOVASCULAR: No angina symptoms. No CHF symptoms. No atypical chest pain for CAD. No palpitations. No orthopnea. GASTROINTESTINAL: No abdominal pain. No nausea or vomiting. No diarrhea or constipation. No hematemesis. No hematochezia. Appetite has improved. GENITOURINARY: No urgency. No frequency. No dysuria. No hematuria. No obstructive symptoms. No discharge. No pain. No significant abnormal bleeding. MUSCULOSKELETAL: No musculoskeletal pain; no joint swelling. NEUROLOGICAL: No headache. No neck pain. No syncope. No seizures. No dizziness. PSYCHIATRIC: Not anxious. No depression. No suicidal thoughts. No homicidal thoughts. SKIN: No rash. No lesions. No wounds. ENDOCRINE: No unexplained weight loss. No weight gain. HEMATOLOGIC/LYMPHATIC: No anemia. No purpura. No petechiae. No prolonged or excessive bleeding. No palpable lymph nodes. PHYSICAL EXAMINATION: GENERAL: The patient is oriented to time, place and person. HEENT: Head normocephalic, atraumatic. Eyes: Extraocular muscles are intact. Pupils are equal, round and reactive to light and accommodation. Ears: No lesions. Nose appeared normal. Throat: No exudate or erythema. NECK: Supple. No JVD, no carotid bruit. No lymphadenopathy or thyromegaly. LUNGS: Few crepitations more on the left than the right. Percussion note normal. Chest symmetrical. HEART: S1, S2, no S3. No murmurs. No cyanosis or clubbing. No ascites. Pulses: Dorsalis pedis and posterior tibial pulses +1 to +2 both sides. ABDOMEN: Soft. Nontender. Bowel sounds active. No CVA tenderness. No mass felt. EXTREMITIES: No edema. Full range of motion of all extremities, equal. NEUROLOGIC: No focal deficit. Cranial nerves II through XII are grossly intact. No headache, no double vision or headache. SKIN: Not dry. Intact. Turgor - normal. LYMPHATIC: No palpable lymph nodes/no lymphedema. MUSCULOSKELETAL: Normal joints with no swelling. Muscle tone is normal. LABS: Atrial blood gasses shows remarkable improvement with pO2 of more than 70 which was 55 just a couple of days ago. Labs all acceptable except for mild anemia which is nutritional. The patient had echocardiogram done to evaluate shortness of breath. The patient's LV contractility is normal, valves are normal, LA cavity and LV cavity is normal. ASSESSMENT: 1. Respiratory failure, resolved 2. Anemia, resolving 3. All the shortness of breath in the bases of his respiratory status with pneumonia PLAN: 1. Being advised to quit cigar smoking which he does maybe once or twice a day 2. Continue antibiotics Rocephin and Vancomycin CONDITION: Stable. TIME SPENT: More than 30 minutes. Plan and coordination of the patient's care discussed in the presence of nurse. ROQUE
--- NOTE | 2017-05-09 15:23 | PN ---
DATE OF SERVICE: 05/06/17 SUBJECTIVE: The patient was seen with the Nurse Practitioner. The patient's condition has improved slowly. He is feeling a lot better and more talkative and coughing much less. PHYSICAL EXAMINATION: HEENT: Head normocephalic, atraumatic. Eyes: Extraocular muscles are intact. Pupils are equal, round and reactive to light and accommodation. Ears: No lesions. Nose appeared normal. Throat: No exudate or erythema. NECK: Supple. No JVD, no carotid bruit. No lymphadenopathy or thyromegaly. LUNGS: Has more air entry. Percussion note normal. Chest symmetrical. HEART: S1, S2, no S3. No murmurs. No cyanosis or clubbing. No ascites. Pulses: Dorsalis pedis and posterior tibial pulses +1 to +2 both sides. ABDOMEN: Soft. Nontender. Bowel sounds active. No CVA tenderness. No mass felt. EXTREMITIES: No edema. Full range of motion of all extremities, equal. NEUROLOGIC: No focal deficit. Cranial nerves II through XII are grossly intact. No headache, no double vision or headache. SKIN: Not dry. Intact. Turgor - normal. LYMPHATIC: No palpable lymph nodes/no lymphedema. MUSCULOSKELETAL: Normal joints with no swelling. Muscle tone is normal. LABS: CT scan of the chest report discussed with him. PLAN: 1. The patient is going to be up and about 2. The patient is on Rocephin and also Vancomycin CONDITION: Stable and improving slowly. TIME SPENT: More than 30 minutes. Plan and coordination of the patient's care discussed in the presence of nurse. ROQUE
[2017-05-10] MEDS ORDERED: COZAAR PO SCH ×2 (09:00)
--- NOTE | 2017-05-11 09:27 | ECHO2D ---
Date of Exam: 05/08/17 Ordering Physician: DR. DAMARIS VALDEZ Room #: 118 Reason for Echo: HYPERTENSION, HYPERCHOLESTEROLEMIA, VIRUS M-Mode Normal Adult Results LV Dimensions Normal Adult Results AoV Opening excursions >1.6 >1.6 LVEDD-base- 3.5-5.8 4.2 Ao root dimensions 2.0-3.7 3.7 LVESD-base- 3.1-4.6 L. Atrium dimensions 1.9-3.8 3.8 Post. Wall thickness 0.8-1.1 1.1 IV septum (thickness) 0.7-1.2 1.1 Post. Wall excursion 0.72-1.3 NORMAL Septal motion NORMAL Systolic motion R. Ventricular cavity 1.5-2.0 NORMAL LVEF 60% 77% Paradoxical septal wall motion NORMAL 2-D : 2-D M Mode Echocardiogram was performed using apical four chamber and left parasternal long and short axis views. Mitral, tricuspid and aortic valves appear to be normal. Contractility of the left ventricle seems to be normal, so is the cavity size. Left atrial cavity size and aortic root appear to be normal. There is no pericardial effusion. There is no thrombus noted in the left ventricular or left aortic cavity. No mitral valve prolapse noted. M-MODE: MV: NORMAL AV: NORMAL TV: NORMAL PV: CHAMBER SIZE: NORMAL WALL MOTION: NORMAL PERICARDIUM: NORMAL INTERPRETATION: 1. NORMAL 2 "D" "M" MODE ECHO [facility]
--- NOTE | 2017-05-11 15:15 | PN ---
DATE OF SERVICE: 05/06/17 SUBJECTIVE: The patient rested better last night. Cough is somewhat improved and becoming more productive. He states that he feels that he is going to try and get up and walk around today. His ABG's are slightly better with pO2 of 57 up from 55 previously. O2 sat was 92%. REVIEW OF SYSTEMS: CONSTITUTIONAL: No night sweats. Fatigue. No fever or chills. HEENT: Eyes: No visual changes. No eye pain. No eye discharge. ENT: No runny nose. No epistaxis. No sinus pain. No sore throat. No odynophagia. No congestion. RESPIRATORY: Cough, no congestion. No hemoptysis. Shortness of breath with exertion. CARDIOVASCULAR: No angina symptoms. No CHF symptoms. No atypical chest pain for CAD. No palpitations. No orthopnea. GASTROINTESTINAL: No abdominal pain. No nausea or vomiting. No diarrhea or constipation. No hematemesis. No hematochezia. GENITOURINARY: No urgency. No frequency. No dysuria. No hematuria. No obstructive symptoms. No discharge. No pain. No significant abnormal bleeding. MUSCULOSKELETAL: No musculoskeletal pain; no joint swelling. NEUROLOGICAL: No headache. No neck pain. No syncope. No seizures. No dizziness. PSYCHIATRIC: Not anxious. No depression. No suicidal thoughts. No homicidal thoughts. SKIN: No rash. No lesions. No wounds. ENDOCRINE: No unexplained weight loss. No weight gain. HEMATOLOGIC/LYMPHATIC: No anemia. No purpura. No petechiae. No prolonged or excessive bleeding. No palpable lymph nodes. PHYSICAL EXAMINATION: HEENT: Head normocephalic, atraumatic. Eyes: Extraocular muscles are intact. Pupils are equal, round and reactive to light and accommodation. Ears: No lesions. Nose appeared normal. Throat: No exudate or erythema. NECK: Supple. No JVD, no carotid bruit. No lymphadenopathy or thyromegaly. LUNGS: Diminished breath sounds bilaterally. Percussion note normal. Chest symmetrical. HEART: S1, S2, no S3. No murmurs. No cyanosis or clubbing. No ascites. Pulses: Dorsalis pedis and posterior tibial pulses +1 to +2 both sides. ABDOMEN: Soft. Nontender. Bowel sounds active. No CVA tenderness. No mass felt. EXTREMITIES: No edema. Full range of motion of all extremities, equal. NEUROLOGIC: No focal deficit. Cranial nerves II through XII are grossly intact. No headache, no double vision or headache. SKIN: Not dry. Intact. Turgor - normal. LYMPHATIC: No palpable lymph nodes/no lymphedema. MUSCULOSKELETAL: Normal joints with no swelling. Muscle tone is normal. LABS: Hgb 10.0, hct 27.0, WBC 8.25, plt count 240, sodium 141, potassium 3.4, BUN 13, creatinine 0.81, glucose 130, blood pressure 150/84, temperature 98.1, heart rate 70, respirations 16, pulse ox 99% on 2 liters. ASSESSMENT: 1. Bilateral pneumonia, improving on the left unchanged on the right. Persistent right lower lobe pneumonia 2. Shortness of breath with exertion 3. Anemia 4. Hypokalemia PLAN: 1. 40meq of Potassium today 2. We added Vancomycin 1200 IV Q 12 hours will continue that. It was added last night 3. The patient is encouraged to be up and about as tolerated 4. Will add Mucomyst twice a day to his NEB treatments 5. We added Pulmicort twice a day to his NEB treatments starting yesterday 6. We will continue to follow him closely. TIME SPENT: More than 30 minutes. Plan and coordination of the patient's care discussed in the presence of nurse. ROQUE
--- NOTE | 2017-06-30 14:58 | DS ---
DATE OF SERVICE: 05/09/17 FINAL DIAGNOSIS: 1. Pneumonia, bilateral 2. Dehydration 3. Hypokalemia (treated) 4. Hypertension 5. Dyslipidemia 6. Anxiety 7. Occasional tobacco use (cigars) 8. Occasional ETOH LAST VITALS: Temperature 97.7, pulse 84, respiratory rate 20, blood pressure 154/84 and pulse ox 96%. DISCHARGE INSTRUCTIONS: Discharge home today. Return to see Dr. Sevilla in his office on 05/16/17 at 9: 45am. Resume home medications as per list provided by the nursing staff. Please note the increase to your Losartan Potassium to 100mg daily. MEDICATIONS AT DISCHARGE: Aspirin 81mg PO daily Cozaar 100mg PO daily Zocor 20mg Po daily Desyrel 50mg PO bedtime ALLERGIES: No known allergies NEW PRESCRIPTIONS: Symbicort 80-4.5mcg, take one puff twice daily (office sample provided) Losartan Potassium 100, take one tablet by mouth daily K-Dur 20meq, take one tablet by mouth twice daily for three days only Tussionex 5ml, take 5ml by mouth twice daily if needed PRN for coughing Keflex 500mg take one capsule by mouth three times daily for 7 days ProAir inhaler administer two puffs three times daily until you are no longer coughing. Prednisone 10mg take two tablets (20mg) by mouth twice daily with good for 5 days then take one tablet (10mg) by mouth with food for 5 days, then stop. DIET INSTRUCTIONS: Healthy Heart ACTIVITY: Get plenty of rest at home. Gradually increase activity level according to toleration. SMOKING: The patient occasionally smokes cigars. He has been made aware of the detrimental effects any tobacco use has on his cardiopulmonary/vascular health. He has been encouraged to stop smoking completely. He has not verbalized his intent for complete cessation. He will benefit from outpatient reinforcement/ encouragement for complete cessation. DISEASE SPECIFIC EDUCATION: Community acquired pneumonia and prevention of spread Bronchitis Dehydration Hypokalemia Followup Home medications New prescriptions HOSPITAL COURSE: This is a 61 year old white male who presented to our office after having completed two rounds of antibiotics at home. He was still experiencing cough. He had been having dizzy and light headed swells of weakness at home. His o2 saturation was in the 90's in our office. He was subsequently admitted. Chest x- ray revealed bilateral pneumonia. BUN was slightly elevated indicating dehydration. Potassium was slow lightly due to dehydration. He was admitted and placed on initially Rocephin 1 gram IV daily along with Zithromax 500mg IV daily times three days. He was started on Xopenex NEB treatment Q 6 hours schedule along with Solu-Cortef 125mg IV Q 6 hours. He was placed on a regular diet. His initial pO2 was 52 with O2 saturation 89%. He is otherwise healthy male with not much medical history other than slight or very mild hypertension. After two to three days on the IV antibiotics his oxygen saturation was still 91 -92% on room air. Repeat chest x-ray revealed not much improvement in the pneumonia so we started him on Vancomycin IV 500mg Q 12 hours. Due to the slow improvement of his pneumonia his Flu A and B was both negative. We did do a Titer for Mycobacteria. Started him on Pulmicort nebulization treatments twice a day to accompany the Xopenex. His Potassium level did drop to 3.0 for which was started him on 20meq of Potassium three times a day. He was initially started on IV fluids normal saline at 75cc an hour. Over the course of several days his hgb was low. We did a stool for occult blood which was negative. It was thought with the hgb being low was due to combination of hemodilution and acute infectious process. Finally the last repeat chest x-ray did show some improvement with pneumonia with just residual on the right side. He will be discharged home on Keflex 500mg three times a day for 7 days, Prednisone 10mg take two tablets twice daily for 5 days and one tablet daily for 5 days and then stop. He will be given a Symbicort inhaler as well as a ProAir inhaler that he is to continue to use at home and we will continue him on Potassium for the next few days. His blood pressure had remained normal during his hospital stay. We continued all his other home medications. Repeat ABG's at the time of discharge showed significant improvement with Sat on room air of 95%. He does not qualify to go home with any sort of oxygen. He does occasionally smoke cigars and information has been provided regarding the need to stop smoking. We will discharge him in stable condition and followup with him in the office next week. TIME SPENT: More than 60 minutes. ROQUE
== END 2017-05-09 13:36 | disposition home or self-care (01) | DRG 195 ==
LOC: UNDOADMIN 12:38 → MEDSURG B 12:38 → UNDOADMIN 12:39 → MEDSURG B 12:39 → UNDOADMIN 05-08 09:00 → MEDSURG B 05-08 09:00
PROVIDERS: ADMIT Internal Medicine; ATTEND Internal Medicine
DX: J18.9 Pneumonia, unspecified organism (principal); Z72.0 Tobacco use; E86.0 Dehydration; E87.6 Hypokalemia; I10 Essential (primary) hypertension; E78.5 Hyperlipidemia, unspecified; F41.9 Anxiety disorder, unspecified; G47.00 Insomnia, unspecified; R06.02 Shortness of breath; N52.9 Male erectile dysfunction, unspecified; M72.2 Plantar fascial fibromatosis; R05 Cough
CPT/HCPCS: 36415; 80053; 80202; 81001; 82550; 82607; 82728; 82746; 82803; 83540; 83550; 83880; 84466; 84484; 85007; 85025; 85045; 86710; 86738; 87070; 87502; 93005; 93010; 94640; 99223; 99232; 99239

== ENCOUNTER 2018-01-02 06:44 | Day surgery (SDC) ==
[2018-01-02] MEDS ORDERED: LIDOCAINE 1% 20 ML MDV ID STA (07:12)
[2018-01-02] MEDS ORDERED: DIPRIVAN 20 ML VIAL IVP ONE (08:40)
[2018-01-02] MEDS ORDERED: VERSED ONE (08:40)
[2018-01-02 10:48] VITALS: BP 112/67; TEMP 98.6
--- NOTE | 2018-01-03 07:50 | OP ---
PROCEDURE: COLONOSCOPY TO THE CECUM . ENDOSCOPIST: Willie TRAVIS M.D. INDICATION: HISTORY OF POLYPS INSTRUMENT: [id number]. MEDICATION: PER ANESTHESIA. PROCEDURE: The patient was positioned for colonoscopy. The digital rectal exam was negative. The colonoscope was inserted through the anus and advanced to the cecum. The cecum was identified using the ileocecal valve and the appendiceal orifice as landmarks. The scope was slowly withdrawn through an adequately prepped colon. Candler Bowel prep score equals 9. Scattered diverticulosis scattered throughout the left colon. The retroflex exam was otherwise normal. The patient tolerated the procedure without immediate complication. Withdraw time 9 minutes and 45 seconds. PLAN: 1. Suggest repeat colonoscopy for surveillance in 5 years. CC: Dr. Roel NEVAREZ
== END 2018-01-02 09:45 | disposition home or self-care (01) ==
LOC: SURG 06:44
PROVIDERS: ATTEND Internal Medicine Gastroenterology
DX: Z86.010 Personal history of colon polyps (principal); K57.90 Diverticulosis of intestine, part unspecified, without perforation or abscess without bleeding